=== PATIENT | female | born 1970 | race Caucasian/White ===

== ENCOUNTER 2016-11-23 21:38 | Emergency (ER) | payer MEDICAID ==
[~2016-11-23] VITALS: Ht 167.6 cm; Wt 89.5 kg
[~2016-11-23 21:38] MED LIST: PANT40TA3 PO; SUCR1TAB56 PO
[2016-11-23 21:48] VITALS: Ht 167.6 cm; Wt 89.5 kg
[2016-11-23] MEDS ORDERED: ONDANSETRON 4 MG INJ IV STA (22:14)
[2016-11-23 23:11] LABS: BASOPHIL # 0.1 10^3/ul (0.0-0.1); EOSINOPHILS # 0.2 10^3/ul (0.0-0.5); EOSINOPHILS % 3.4 % (0.0-7.0); HEMOGLOBIN 13.1 g/dl (12.0-16.0); LYMPHOCYTES # 2.4 10^3/ul (0.8-2.9); LYMPHOCYTES % 34.7 % (15.0-51.0); MEAN CORPUSCULAR HEMOGLOBIN 30.8 pg (29.0-33.0); MEAN CORPUSCULAR HGB CONC 33.6 g/dl (32.0-37.0); MEAN CORPUSCULAR VOLUME 91.8 fl (82.0-101.0); MEAN PLATELET VOLUME 9.5 fl (7.4-10.4); MONOCYTE # 0.7 10^3/ul (0.3-0.9); MONOCYTES % 9.6 % (0.0-11.0); NEUTROPHILS % 51.2 % (39.0-77.0); PLATELET COUNT 340 10^3/UL (140-415); RED BLOOD COUNT 4.25 10^6/ul (4.20-5.40); RED CELL DISTRIBUTION WIDTH 11.8 % (11.5-14.5); WHITE BLOOD COUNT 6.8 10^3/ul (4.8-10.8)
[2016-11-23 23:30] LABS: ALBUMIN 4.3 g/dl (3.3-4.9); BILIRUBIN,INDIRECT 0.3 mg/dl (0-1.1); BILIRUBIN,TOTAL 0.3 mg/dl (0.2-1.3); CALCIUM 9.1 mg/dl (8.4-10.2); CREATININE 0.81 mg/dl (0.44-1.00); POTASSIUM 3.7 mmol/L (3.5-5.1)
[2016-11-23 23:34] LABS: ALBUMIN/GLOBULIN RATIO 1.38; TOTAL PROTEIN 7.4 g/dl (6.1-8.1)
--- NOTE | 2016-11-24 | RADRPT ---
PROCEDURE: ULTRASOUND PELVIS - TRANSABDOMINAL ONLY CLINICAL INDICATION: 46-year-old female with vaginal bleeding. TECHNIQUE: Multiple sonographic images of the pelvis were obtained utilizing a transabdominal tech nique. The images were reviewed on a PACS workstation. COMPARISON: None. FINDINGS: The uterus is enlarged and heterogeneous measuring 19.6 x 9.9 x 18.7 cm. There is a discrete ovoid e chogenic focus within the anterior uterine body measuring 7.7 x 7.0 x 9.5 cm consistent with a fibro id. Multiple small areas of abnormal echogenicity are seen. The endometrial echo complex is thicken ed and measures 22.6 mm. There is no evidence for free fluid. The ovaries were not visualized bilate rally. No adnexal masses are noted. IMPRESSION: 1. Enlarged heterogeneous fibromatous uterus with discrete fibroids. 2. Thickened endometrial echo complex. 3. The ovaries were not visualized bilaterally. .Dean Ruvalcaba MD, MD Date Time Electronically viewed and signed by .Dean Ruvalcaba MD, on 11/24/2016 00:00 .M/
[2016-11-24 01:24] LABS: UR RBC > 182 /HPF (0-5)
[2016-11-24 01:29] LABS: ADD UMIC YES; UR ASCORBIC ACID NEGATIVE (NEGATIVE); UR BILIRUBIN (Dip) NEGATIVE (NEGATIVE); UR BLOOD (Dip) 3+ mg/dL (NEGATIVE); UR CLARITY CLOUDY (CLEAR); UR COLOR RED (YELLOW); UR GLUCOSE (Dip) NEGATIVE (NEGATIVE); UR KETONES (Dip) NEGATIVE (NEGATIVE); UR LEUKOCYTE ESTERASE (Dip) TRACE Leu/ul (NEGATIVE); UR NITRITE (Dip) POSITIVE (NEGATIVE); UR SPECIFIC GRAVITY (Dip) 1.018 (1.003-1.030); UR TOTAL PROTEIN (Dip) 2+ mg/dl (NEGATIVE); UR UROBILINOGEN (Dip) NEGATIVE (NEGATIVE)
[2016-11-24] MEDS ORDERED: NITR-58 PO (01:38)
[2016-11-24] MEDS ORDERED: ACET500C5 PO (01:38)
[2016-11-24] MEDS ORDERED: HYDR25SU23 PR (01:38)
--- NOTE | 2016-11-24 01:56 | ERD ---
ER Documentation Chief Complaint Date/Time DATE: 11/24/16 TIME: 01:52 Chief Complaint vag bleeding x 5 days HPI 46-year-old female patient with a past medical history of fibroids, hemorrhoids , IBS presents the ED complaining of vaginal bleeding that started 5 days ago. Reports that she just started her menstruation and she usually has heavy bleeding. States that she is passing clots. Denies being . Denies dysuria, urgency, frequency, hematuria, nausea, vomiting, diarrhea. ROS All systems reviewed and are negative except as per history of present illness. Medications Home Meds Active Scripts Hydrocortisone Acetate (Anusol-Hc) 25 Mg Supp.rect, 1 SUPP VA BID Y for HEMORROID PAIN/ITCHING, #12 SUPP.RECT Prov:KB ANG PA-C 11/24/16 Acetaminophen* (Tylophen*) 500 Mg Capsule, 1 CAP PO Q6H Y for PAIN AND OR ELEVATED TEMP, #20 CAP Prov:KB ANG PA-C 11/24/16 Nitrofurantoin Monohyd Macrocr* (Macrobid*) 100 Mg Capsr, 100 MG PO BID for 7 Days, CAP Prov:KB ANG PA-C 11/24/16 Pantoprazole* (Protonix*) 40 Mg Tablet.dr, 40 MG PO DAILY, #30 TAB Prov:IVON SEXTON 09/12/15 Sucralfate* (Carafate*) 1 Gm Tab, 1 GM PO QID, #120 TAB Prov:IVON SEXTON 09/12/15 Allergies Allergies: Coded Allergies: Penicillins (Verified Allergy, Unknown, 09/11/15) Sulfa (Sulfonamide Antibiotics) (Verified Allergy, Unknown, 09/11/15) aspirin (Verified Allergy, Unknown, 09/11/15) PMhx/Soc History of Surgery: Yes (scalp tumor, tonsillitis) Anesthesia Reaction: No Hx Neurological Disorder: No Hx Respiratory Disorders: No Hx Cardiac Disorders: No Hx Psychiatric Problems: No Hx Miscellaneous Medical Probl: Yes (gastritis, hemorrhoids, FIBROSIS) Hx Alcohol Use: Yes (social) Hx Substance Use: No Hx Tobacco Use: No Smoking Status: Never smoker Physical Exam Vitals Vital Signs Date Time Temp Pulse Resp B/P Pulse Ox O2 Delivery O2 Flow Rate FiO2 11/24/16 02:41 97.9 82 20 138/79 99 Room Air 11/23/16 21:48 98.6 89 20 164/94 98 Physical Exam Const: [id number]-[id number], well-nourished. In no acute distress. Head: Atraumatic, normocephalic Eyes: Normal Conjunctiva without injection. No purulent discharge. ENT: Normal external ear, nose. Moist oropharynx without tonsillar exudates. Non -erythematous pharynx. Uvula midline. No drooling. No trismus. Neck: No cervical midline tenderness. Full range of motion. No meningismus. No cervical lymphadenopathy. No JVD. Resp: Clear to auscultation bilaterally. No wheezing, rhonchi, rales, or crackles. No accessory muscle use. No retractions. Cardio: Regular rate and rhythm. No murmurs, rubs or gallops. Abd: Soft, nontender, non distended. Normal bowel sounds. No palpable masses. No rebound tenderness. No guarding. Negative McBurney's point. Negative psoas sign. Negative obturator sign. Rectal exam showed external hemorrhoids that are nonthrombosed. No fluctuance or induration. No erythema or edema. : See exam in MDM. Skin: No petechiae or rashes Back: No midline tenderness. No CVA tenderness. Ext: No cyanosis, or edema. Neur: Awake and alert. Normal gait. Normal coordination. Psych: Normal Mood and Affect Result Diagram: 11/23/16224411/23/165 Results 24 hrs Laboratory Tests Test 11/23/16 22:45 11/24/16 00:30 White Blood Count 6.810^3/ul Red Blood Count 4.2510^6/ul Hemoglobin 13.1g/dl Hematocrit 39.0% Mean Corpuscular Volume 91.8fl Mean Corpuscular Hemoglobin 30.8pg Mean Corpuscular Hemoglobin Concent 33.6g/dl Red Cell Distribution Width 11.8% Platelet Count 15019^3/UL Mean Platelet Volume 9.5fl Neutrophils % 51.2% Lymphocytes % 34.7% Monocytes % 9.6% Eosinophils % 3.4% Basophils % 1.0% Nucleated Red Blood Cells % 0.0/100WBC Neutrophils # (Manual) 3.510^3/ul Lymphocytes # 2.410^3/ul Monocytes # 0.710^3/ul Eosinophils # 0.210^3/ul Basophils # 0.110^3/ul Nucleated Red Blood Cells # 0.010^3/ul Sodium Level 136mmol/L Potassium Level 3.7mmol/L Chloride Level 102mmol/L Carbon Dioxide Level 28mmol/L Anion Gap 10 Blood Urea Nitrogen 13mg/dl Creatinine 0.81mg/dl Glucose Level 100mg/dl Calcium Level 9.1mg/dl Total Bilirubin 0.3mg/dl Direct Bilirubin 0.00mg/dl Indirect Bilirubin 0.3mg/dl Aspartate Amino Transf (AST/SGOT) 20IU/L Alanine Aminotransferase (ALT/SGPT) 38IU/L Alkaline Phosphatase 53IU/L Total Protein 7.4g/dl Albumin 4.3g/dl Globulin 3.10g/dl Albumin/Globulin Ratio 1.38 Lipase 132U/L Urine Color RED Urine Clarity CLOUDY Urine pH 6.0 Urine Specific Antigo 1.018 Urine Ketones NEGATIVEmg/dL Urine Nitrite POSITIVEmg/dL Urine Bilirubin NEGATIVEmg/dL Urine Urobilinogen NEGATIVEmg/dL Urine Leukocyte Esterase TRACELeu/ul Urine Microscopic RBC > 182/HPF Urine Microscopic WBC 72/HPF Urine Hemoglobin 3+mg/dL Urine Glucose NEGATIVEmg/dL Urine Total Protein 2+mg/dl Current Medications Medications (Trade) Dose Ordered Sig/Inga Route PRN Reason Start Time Stop Time Status Last Admin Dose Admin Ondansetron HCl (Zofran Inj) 4 mg ONCE STAT IV 11/23/16 22:14 11/23/16 22:15 Cancel Procedures/MDM This is a 46-year-old female patient with a past medical history of fibroids, hemorrhoids, IBS presents to the ED complaining of vaginal bleeding and passing clots during her menstruation as well as slight rectal bleeding due to her hemorrhoids. Patient is afebrile and nontoxic-appearing. Patient has normal vital signs. Patient was further worked up with CBC, CMP, lipase, UA, urine , pelvic ultrasound. CBC: No leukocytosis. No e/o of systemic infection. No e/o anemia. CMP: No e/o severe acidosis, alkalosis, renal failure, diabetic ketoacidosis, liver disease Lipase within normal limits. Urine: trace leukocyte esterase, positive nitrite, no hematuria. Urine : Negative PROCEDURE: ULTRASOUND PELVIS - TRANSABDOMINAL ONLY CLINICAL INDICATION: 46-year-old female with vaginal bleeding. TECHNIQUE: Multiple sonographic images of the pelvis were obtained utilizing a transabdominal technique. The images were reviewed on a PACS workstation. COMPARISON: None. FINDINGS: The uterus is enlarged and heterogeneous measuring 19.6 x 9.9 x 18.7 cm. There is a discrete ovoid echogenic focus within the anterior uterine body measuring 7.7 x 7.0 x 9.5 cm consistent with a fibroid. Multiple small areas of abnormal echogenicity are seen. The endometrial echo complex is thickened and measures 22.6 mm. There is no evidence for free fluid. The ovaries were not visualized bilaterally. No adnexal masses are noted. IMPRESSION: 1. Enlarged heterogeneous fibromatous uterus with discrete fibroids. 2. Thickened endometrial echo complex. 3. The ovaries were not visualized bilaterally. Patient symptoms are likely due to fibroids causing her vaginal bleeding. It is 79 cm in size. Instructed patient to strictly follow up with a CARROT TIER for further evaluation and treatment. Low suspicion for ovarian torsion, ectopic , appendicitis, pyelonephritis, or other emergent conditions. Patient likely has hemorrhoids. Low suspicion for perianal abscess, perirectal abscess , fissures, gastritis, GERD, peptic ulcer disease, cholecystitis, choledocholithiasis, cholangitis, pancreatitis, appendicitis, bowel obstruction , ileus, volvulus, nephrolithiasis, pyelonephritis, hepatitis, perforated viscus , diverticulitis, abdominal hernia, acute abdomen, mesenteric ischemia or other emergent conditions. Discharge medications: Tylenol, Macrobid, Anusol Follow up with primary care physician in 1-2 days for referral to toys and games hand finisher. Instructed patient to return to the ED sooner for any worsening symptoms. Patient's questions were answered. Patient understood and agreed with discharge plan. Patient discharged stable. Departure Diagnosis: Primary Impression: Fibroids Uterine leiomyoma location: unspecified location Qualified Code: D25.9 - Uterine leiomyoma, unspecified location Additional Impressions: Urinary tract infection Urinary tract infection type: site unspecified Hematuria presence: without hematuria Qualified Code: N39.0 - Urinary tract infection without hematuria, site unspecified Acute hemorrhoid Condition: Stable Patient Instructions: What Are Fibroids?, Urinary Tract Infections in Women, Hemorrhoids Referrals: [facility] YOU HAVE RECEIVED A MEDICAL SCREENING EXAM AND THE RESULTS INDICATE THAT YOU DO NOT HAVE A CONDITION THAT REQUIRES URGENT TREATMENT IN THE EMERGENCY DEPARTMENT. FURTHER EVALUATION AND TREATMENT OF YOUR CONDITION CAN WAIT UNTIL YOU ARE SEEN IN YOUR DOCTORS OFFICE WITHIN THE NEXT 1-2 DAYS. IT IS YOUR RESPONSIBILITY TO MAKE AN APPOINTMENT FOR FOLOW-UP CARE. IF YOU HAVE A PRIMARY DOCTOR --you should call your primary doctor and schedule an appointment IF YOU DO NOT HAVE A PRIMARY DOCTOR YOU CAN CALL OUR PHYSICIAN REFERRAL HOTLINE AT IF YOU CAN NOT AFFORD TO SEE A PHYSICIAN YOU CAN CHOSE FROM THE FOLLOWING [facility] [address] [facility]. [facility] [address] [facility]. [facility] [address] [facility]. [facility] [address] [facility]. [facility] [address] [facility]. [facility]. [address] [facility]. [facility] YOU HAVE RECEIVED A MEDICAL SCREENING EXAM AND THE RESULTS INDICATE THAT YOU DO NOT HAVE A CONDITION THAT REQUIRES URGENT TREATMENT IN THE EMERGENCY DEPARTMENT. FURTHER EVALUATION AND TREATMENT OF YOUR CONDITION CAN WAIT UNTIL YOU ARE SEEN IN YOUR DOCTORS OFFICE WITHIN THE NEXT 1-2 DAYS. IT IS YOUR RESPONSIBILITY TO MAKE AN APPOINTMENT FOR FOLOW-UP CARE. IF YOU HAVE A PRIMARY DOCTOR --you should call your primary doctor and schedule and appointment IF YOU DO NOT HAVE A PRIMARY DOCTOR YOU CAN CALL OUR PHYSICIAN REFERRAL HOTLINE AT . IF YOU CAN NOT AFFORD TO SEE A PHYSICIAN YOU CAN CHOSE FROM THE FOLLOWING [facility]: [facility] [address] [place] [address] [facility] [address] [place] [address] [facility] [address] [place] [address] [facility] URGENT CARE/SPECIALTIES [place] [address] [facility] [address] [place] [address] OFFICE FAX MIC [place] [address] [place] [address] [address] [place] [address] [place] [address] [address] [facility] [address] [place] [address] [address] [address] [place] [address] [facility] [address] [place] [address] [address] [facility] [id number] - [address] [facility], [place] [address] [address]ALVAN, SAUL [address] [facility], [place] [address] [address] [facility] [address] [place], [place] [id number] [facility] Hours: 8:00 am - 5:00 pm Additional Instructions: FOLLOW UP WITH YOUR PRIMARY CARE PHYSICIAN TOMORROW for a referral to an OB/ MACHINE PRINTER.Return to this facility if you are not improving as expected. KB ANG PA-C Nov 24, 2016 01:55
[2016-11-24 02:41] VITALS: BP 138/79; PULSE 82; RESP 20; TEMP 97.9
== END 2016-11-24 02:15 | disposition home or self-care (01) ==
LOC: FTE 21:38
DX: D25.9 Leiomyoma of uterus, unspecified (principal); N39.0 Urinary tract infection, site not specified; K64.4 Residual hemorrhoidal skin tags
CPT/HCPCS: 36415; 76856; 80053; 81001; 83690; 85025; Z7502